=== PATIENT | female | born 1990 | race Caucasian/White ===

== ENCOUNTER 2023-08-06 08:18 | Inpatient (IN) ==
[2023-08-06] MEDS: LACTATED RINGER'S 1,000 ML IV PRN (08:35)
[2023-08-06] MEDS ORDERED: OXYTOCIN 30 UNITS/NSS 30 UNITS/500 ML BAG IV PRN ×2 (08:37→17:14)
[2023-08-06] MEDS ORDERED: LIDOCAINE 1% LOCAL 20 ML VIAL INFIL PRN (08:37)
[2023-08-06] MEDS ORDERED: BUTORPHANOL TARTRATE 2 MG/ML VIAL IV PRN (09:00)
[2023-08-06 09:12] LABS: Hematocrit (blood only) 34.9 % (37.0-47.0); Hemoglobin 11.4 g/dl (12.0-16.0); Mean Corpuscular Hemoglobin 27.9 pg (25.0-34.0); Mean Corpuscular Hgb Conc 32.7 g/dL (32.0-36.0); Mean Corpuscular Volume 85.5 fL (80.0-100.0); Mean Platelet Volume 9.7 fL (9.4-12.4); Platelet Count 229 K/uL (130-400); RDW Coefficient of Variation 13.8 % (11.5-14.5); RDW Standard Deviation 42.2 fL (36.4-46.3); Red Blood Count 4.08 M/uL (4.20-5.40); White Blood Count 7.81 K/ul (4.8-10.8)
[2023-08-06] MEDS: OXYTOCIN 30 UNITS/NSS 30 UNITS/500 ML BAG IV PRN (09:12)
--- NOTE | 2023-08-06 09:20 | History & Physical Report ---
Date of Service August 06, 2023 Assessment & Plan (1) Encounter for supervision of normal in multigravida: Plan: 32-year-old multiparous female presents for induction because of suspected macrosomic at 39-0/7 weeks. A cervical dilator was placed successfully and Pitocin induction will follow per unit protocol. Epidural when requested. Anticipate vaginal . Admission and Anticipated Discharge Date Admission Date: August 06, 2023 History of Present Illness Primary Care Provider: NO PCP Patient is a 32-year-old 4 para 3-0-0-3 female EDC of 08/13/2023 who presents for induction of labor at 39-0/7 weeks because of suspected macrosomic . Last growth scan at 36 weeks showed estimated weight of 95th percentile. Her largest baby so far was 8 pounds 12 ounces. She delivered him without shoulder dystocia or hemorrhage. GBS is negative. otherwise has been uncomplicated. Allergies Allergy/AdvReac Type Severity Reaction Status Date / Time No Known Allergies Allergy Verified 08/05/23 13:46 Home Medications Medication Instructions Recorded Confirmed Type vits no.124-ferrous fum 1 tab PO DAILY 08/06/23 08/06/23 History 27 mg iron-folic acid 800 mcg tablet ( Vitamin) Patient History Medical History (Updated 01/03/23 @ 14:25 by Maggy Kelly) Human papilloma virus Surgical History (Updated 01/03/23 @ 14:25 by Maggy Kelly) Status post surgery cryosurgery ~2014 Family History (Updated 01/03/23 @ 14:12 by Maggy Kelly) Sister Autism Denies family history of Ovarian cancer Breast cancer Colorectal cancer Social History (Updated 01/03/23 @ 14:14 by Maggy Kelly) Smoking Status: Never smoker Do You Dip or Chew Tobacco: No; marital status: Single marital status details: david Cardona (29) [phone] Current Living Situation: Family Current Living Situation Comment: lives with 3 children, cats-mom changing litter current occupational status: employed current occupation: [employer] Review of Systems All systems reviewed & are unremarkable except as noted in HPI & below Physical Exam Constitutional: WD/WN, vitals as above Psychiatric: A+Ox3, euthymic affect Genitourinary: OB Exam Abdomen: + vertex, + estimated weight (8-9 pounds) and + irregular contractions Manual OB Exam: + cervical dilation 1 cm, + cervical effacement 50% and + station -2 OB Exam Monitor Tracing: + external FHT monitor used, + external uterine monitor used, + category I and + normal FHT variability After obtaining verbal consent, a speculum was placed vaginally and the cervix was visualized. A Dudley catheter was inserted through the cervical canal with ease. The balloon was then filled with 40 cc of sterile water. The catheter was aced on traction and attached to her left thigh. Patient tolerated the procedure well. Results & Data Vital Signs (Past 12 Hours) Vital Signs Temp Pulse Resp BP 08/06/23 08:45 97.9 F 18 08/06/23 08:29 75 122/82 Code Status & VTE Plan VTE Prophylaxis Plan VTE Prophylaxis will be ordered: No Coding Level of Care Code None Diagnoses Encounter for supervision of normal in multigravida Z34.80
[2023-08-06] MEDS ORDERED: fentaNYL citrate PF 100 MCG/2 ML VIAL EPI PRN (11:49)
[2023-08-06] MEDS ORDERED: SODIUM CHLORIDE 0.9% PF INJ 10 ML VIAL EPI PRN (11:49)
[2023-08-06] MEDS ORDERED: fentANYL 2 MCG/ML BUPIVacaine 0.125%-NSS 100ML BAG EPI PRN (11:49)
[2023-08-06] MEDS ORDERED: NALOXONE HCL 1 MG in SODIUM CHLORIDE 0.9% 1,000 ML IV PRN (11:49)
[2023-08-06] MEDS ORDERED: NALBUPHINE HCL 5 MG in SYRINGE 0 ML IV PRN (11:49)
[2023-08-06] MEDS ORDERED: ROPIVACAINE 0.5% PF 5 MG/ML 20 ML VIAL EPI PRN (11:49)
[2023-08-06] MEDS ORDERED: diphenhydrAMINE 50 MG/ML VIAL IV PRN (11:49)
[2023-08-06] MEDS ORDERED: ePHEDrine sulfate 50 MG/ML AMP IV PRN (11:49)
[2023-08-06] MEDS ORDERED: NALOXONE HCL 0.4 MG/1 ML VIAL/CARP IV PRN (11:49)
[2023-08-06] MEDS ORDERED: BUPIVACAINE 0.25% PF 30 ML VIAL EPI PRN (11:49)
[2023-08-06] MEDS ORDERED: LIDOCAINE 2% MPF LOCAL 5 ML VIAL EPI PRN (11:49)
--- NOTE | 2023-08-06 11:52 | Anesthesiology Consultation ---
Date of Service August 06, 2023 Assessment & Plan Chart Review Chart Review: Patient NOT seen in Pre Admission Testing and Acceptable Risk for Labor Epidural Consults Requested none ASA ASA2 Proposed Anesthesia Anesthesia Type: Labor Epidural Risk / Benefits Reviewed With: PT / POA / Parent / Guardian, Accepts Plan and Informed Consent Obtained History Height/Weight Height: 5 ft 5 in Weight: 92.533 kg Allergies Allergy/AdvReac Type Severity Reaction Status Date / Time No Known Allergies Allergy Verified 08/05/23 13:46 Medications Home Medications Medication Instructions Recorded Confirmed Last Taken vits no.124-ferrous fum 1 tab PO DAILY 08/06/23 08/06/23 Unknown 27 mg iron-folic acid 800 mcg tablet ( Vitamin) Active Medications Generic Name Dose Route Start Last Admin Trade Name Freq PRN Reason Stop Dose Admin Oxytocin 30 units in 500 mls @ 12 mls/hr 08/06/23 08:37 08/06/23 11:45 Pitocin 30 Units/Nss IV 08/08/23 08:36 0.72 units/hr .Q24H PRN 12 mls/hr Labor Induction/Augmentation Titration Protocol 0.72 UNITS/HR Lactated Ringer's 1,000 mls @ 125 mls/hr 08/06/23 08:37 08/06/23 11:45 Lr IV 08/08/23 08:36 125 mls/hr .Q8H PRN Administration L&D Protocol Protocol NPO Date Last Intake of Fluids: 08/06/23 Time Last Intake of Fluids: 11:00 Date Last Intake of Solids: 08/06/23 Time Last Intake of Solids: 09:00 Past Medical History Medical History Human papilloma virus Past Family History Family History Sister Autism Grandfather (Maternal) Lung cancer Denies family history of Ovarian cancer Breast cancer Colorectal cancer Past Surgical History Surgical History Status post surgery cryosurgery ~2014 Past Anesthesia History No Hx of Anesthesia Complications and No Family Hx of Anesthesia Complications Social History Smoking Status: Never smoker Do You Dip or Chew Tobacco: No Hx Alcohol Use: No Hx Substance Use: No Review of Systems ROS Unobtainable: All systems reviewed & are unremarkable except as noted in HPI & below Physical Exam Vital Signs Last Vital Signs Temp 36.6 C 08/06/23 09:15 Pulse 75 08/06/23 10:47 Resp 18 08/06/23 09:15 BP 107/65 08/06/23 10:47 ENMT Mouth: no TMJ abnormality Thyromental Distance: > or= 3.5 Finger Breadths Mallampati Class: II Neck normal visual inspection and trachea midline; neck extension not limited Respiratory normal respiratory effort Auscultation: lungs clear to auscultation bilaterally Cardiovascular Rate/Rhythm: regular rate and regular rhythm Heart Sounds: no murmur Musculoskeletal Spine: normal cervical ROM Extremities: full ROM of extremities Neurologic moves all extremities Psychiatric Orientation: alert and oriented x 3 Testing Laboratory Results 08/06/23 08:53
[2023-08-06] MEDS: fentANYL 2 MCG/ML BUPIVacaine 0.125%-NSS 100ML BAG ONE (12:16)
[2023-08-06] MEDS: LIDOCAINE 2%/EPINEPHRINE 1:200,000 20 ML PF EPI STA (12:17)
[2023-08-06] MEDS: BUPIVACAINE 0.25% PF 30 ML VIAL EPI STA (12:17)
[2023-08-06] MEDS: SODIUM CHLORIDE 0.9% PF INJ 10 ML VIAL EPI STA (12:17)
[2023-08-06] MEDS: ePHEDrine sulfate 50 MG/ML AMP ONE (14:33)
[2023-08-06] MEDS: BUPIVACAINE 0.25% PF 30 ML VIAL ONE (14:33)
[2023-08-06] MEDS: SODIUM CHLORIDE 0.9% PF INJ 10 ML VIAL ONE (14:33)
[2023-08-06] MEDS: LIDOCAINE 2%/EPINEPHRINE 1:200,000 20 ML PF ONE (14:33)
[2023-08-06] MEDS: fentaNYL citrate PF 100 MCG/2 ML VIAL ONE (14:33)
[2023-08-06] MEDS: fentaNYL citrate PF 100 MCG/2 ML VIAL EPI STA (14:34)
--- NOTE | 2023-08-06 16:24 | Delivery Summary ---
Vaginal Delivery Summary Date of Service August 06, 2023 Vaginal Delivery Summary and 1st Degree LAC (superficial -no repair needed) Patient is a 32-year-old 4 para 3-0-0-3 white female who presents at 39- 0/7 weeks for induction for suspected macrosomic infant. She received a cervical balloon and Pitocin induction. After the cervical balloon delivered, she was becoming more painful and requested epidural analgesia. Membranes were ruptured for small amount of clear fluid. She progressed rapidly at that point to full dilation with the urge to push. She pushed effectively through 1 contraction for delivery of a viable male . After the head was delivered there was a mild shoulder dystocia present which was relieved with hyperflexion of the hips. The rest of the infant then delivered with ease and was placed on the mother's abdomen for further attention and drying. He was vigorous crying and moving all 4 limbs. After cord blood was obtained, the placenta was expressed intact with a three-vessel cord. bleeding was controlled with dilute Pitocin and fundal massage. A superficial perineal abrasion was noted. It was not bleeding and therefore not repaired. QBL was 655 cc. Mother and were doing well after delivery. [facility] [place] Vaginal Delivery Charge Delivery Type Details: and 1st Degree LAC (superficial -no repair needed)
[2023-08-06] MEDS ORDERED: oxyCODONE/ACETAMINOPHEN 5mg/325mg TAB PO PRN (17:14)
[2023-08-06] MEDS ORDERED: bisacodyL 10 MG SUPP PR PRN (17:14)
[2023-08-06] MEDS ORDERED: BENZOCAINE 20% SPRY 85 APPLN/85 GM CAN EXT PRN (17:14)
[2023-08-06] MEDS ORDERED: HYDROCORTISONE ACETATE 25 MG SUPP PR PRN (17:14)
--- NOTE | 2023-08-06 18:48 | Anesthesia Procedure Note ---
Date of Service August 06, 2023 Anesthesia Post Epidural Note Vital Signs Vital Signs: Temp Pulse Resp BP Pulse Ox 36.8 C 114 H 18 111/68 100 08/06/23 18:15 08/06/23 18:35 08/06/23 18:15 08/06/23 18:33 08/06/23 17:22 Notes Mental Status: alert / awake / arousable and participated in evaluation Nausea / Vomiting: adequately controlled Pain: adequately controlled Airway Patency, RR, SpO2: stable & adequate BP & HR: stable & adequate Hydration State: stable & adequate Neuraxial Anesthesia: was administered and sensory block is resolving Anesthetic Complications: no major complications apparent Epidural: Removed without complications and With tip intact
[2023-08-06] MEDS: IBUPROFEN 600 MG TAB PO PRN (19:32)
[2023-08-07] MEDS: DOCUSATE SODIUM 100 MG CAP PO SCH (03:23)
[2023-08-07] MEDS: ACETAMINOPHEN 325 MG TAB PO PRN (06:06)
[2023-08-07 06:18] LABS: Hemoglobin 9.4 g/dl (12.0-16.0); Mean Corpuscular Hemoglobin 27.7 pg (25.0-34.0); Mean Corpuscular Hgb Conc 32.4 g/dL (32.0-36.0); Mean Corpuscular Volume 85.5 fL (80.0-100.0); Mean Platelet Volume 9.2 fL (9.4-12.4); Platelet Count 174 K/uL (130-400); RDW Coefficient of Variation 13.8 % (11.5-14.5); Red Blood Count 3.39 M/uL (4.20-5.40); White Blood Count 10.46 K/ul (4.8-10.8)
--- NOTE | 2023-08-07 06:28 | Obstetrical Progress Note ---
Date of Service <Jv Gan MD - Last Filed: 08/07/23 08:29> August 07, 2023 Assessment & Plan <Jv Gan MD - Last Filed: 08/07/23 08:29> (1) Normal vaginal delivery of fourth : Plan 32 yo , status post induction of labor and vaginal delivery w/ one laceration on 08/06/23 - Pt doing well clinically. Feels well today. Eating well, voiding well, ambulating well. Pain well controlled with PRN pain meds. - Routine care -- OOB, ambulation, diet progression as tolerated Vital Signs reviewed and WNL. (Tmax at 36.7) Hemoglobin Reviewed. 11.4 (08/06/23) 9.4 (today). Blood Type: O+, GBS-, Rubella Non-Immune. Encourage ambulation, monitor and control pain with Motrin PRN, resume regular diet, monitor lochia. Breast feeding encouraged. After discharge will have 6 week follow-up with Dr. Cummings. Pt counselled on discharge instructions, in the event that they go home today. <Sonia Cummings MD, FACOG - Last Filed: 08/07/23 08:41> (1) Normal vaginal delivery of fourth : Subjective <Jv Gan MD - Last Filed: 08/07/23 08:29> Ambulation: ambulating normally Voiding: no voiding problems Passing Gas:: No Diet Tolerance:: regular diet Lochia:: Moderate Feeding Type:: bottle feeding Current Pain Level(1-10): 7 (abdominal cramping when pain medicine wears off) Constitutional: + fatigue; no fever or no chills Eyes: no diplopia, no seeing flashes or no worsening vision Ear, Nose, Mouth, Throat: no dizziness, no nasal congestion, no nasal discharge, no post nasal drip or no sore throat Respiratory: no cough, no chest congestion or no dyspnea Cardiovascular: no chest pain or no palpitations Gastrointestinal: no abdominal pain, no nausea, no vomiting, no constipation (but still no BM) or no diarrhea/loose stools Genitourinary (female): no dysuria or no difficulty urinating Musculoskeletal: + myalgia (in left lateral thigh) Neurologic: no tingling, no numbness, no dizziness or no headache(s) Physical Exam <Jv Gan MD - Last Filed: 08/07/23 08:29> Constitutional WD/WN, vitals as above Respiratory normal respiratory effort, lungs clear to auscultation Cardiovascular RRR, no murmur, no edema Gastrointestinal (Abdomen) Inspection/Auscultation: abdomen normal to inspection and + significant pannus Percussion/Palpation: + abdomen tender (mildly tender) Musculoskeletal Extremities: no lower leg abnormality (left thigh w/out erythema, edema, warmth or other concerning signs) Patient's pain of left lateral thigh not discernible w/ palpation. Likely due to prolonged and extended hip extension during delivery. Seems to be resolving Psychiatric A+Ox3, euthymic affect Results & Data <Jv Gan MD - Last Filed: 08/07/23 08:29> Vital Signs (Past 12 Hours) Vital Signs Temp Pulse Pulse Resp BP BP Pulse Ox 08/07/23 05:00 36.4 C L 98 H 16 112/72 98 08/07/23 00:05 36.6 C 94 H 16 111/72 97 08/06/23 20:26 36.4 C L 104 H 16 112/75 97 08/06/23 18:35 114 H 08/06/23 18:33 106 H 111/68 O2 Del Method 08/07/23 05:00 Room Air 08/07/23 00:05 Room Air 08/06/23 20:26 Room Air 08/06/23 18:35 08/06/23 18:33 Supervising Physician <Sonia Cummings MD, FACOG - Last Filed: 08/07/23 08:41> Co-Signing Physician Notes Resident Physician Supervision Note: I interviewed and examined the patient. Discussed with Dr. Gan and agree with findings and plan as documented in the note. Any exceptions or clarifications are listed here: [None] Documented By: Sonia Cummings MD, FACOG
[2023-08-07] MEDS: PRENATAL VITAMIN 1 TAB PO SCH (08:01)
[2023-08-07] MEDS: MEASLES, MUMPS & RUBELLA VIRUS VACCINE (MMR) VIAL SQ ONE (12:23)
[2023-08-07] MEDS: DIPHTHER/TETAN/PERTUS Vaccine (Tdap, Adol/Adult) 0.5mL IM ONE (12:23)
[2023-08-07] MEDS ORDERED: bisacodyL 5 MG TABEC PO SCH (20:00)
== END 2023-08-07 17:45 | disposition home or self-care (01) | DRG 807 ==
LOC: 4S1 08:18 → 4E2 18:49

== ENCOUNTER 2024-09-28 08:08 | Inpatient (IN) ==
[2024-09-28] MEDS ORDERED: CALCIUM CARBONATE 500 MG CHEWABLE TAB PO PRN (08:27)
[2024-09-28] MEDS ORDERED: LIDOCAINE 1% LOCAL 20 ML VIAL INFIL PRN (08:27)
--- NOTE | 2024-09-28 09:15 | History & Physical Report ---
Date of Service September 28, 2024 Assessment & Plan (1) Hypothyroid in , antepartum: Plan: Lilly is a 33-year-old G5, P4 currently at 39 weeks 3 days gestational age presents for elective induction of labor 1. Fetus: Category 1 tracing 2. Labor: Will start with oxytocin per regular protocol. Will plan for rupture of membranes when appropriate 3. GBS negative 4. Vitals within normal limits (2) Encounter for supervision of normal in multigravida: (3) Encounter for induction of labor: Admission and Anticipated Discharge Date Admission Date: September 28, 2024 History of Present Illness Primary Care Provider: NO PCP Lilly is a 33-year-old G5, P4 currently at 39 weeks 3 days gestational age presents for induction of labor. complicated by hypothyroidism adequately treated. OB Labs: Blood Type O Positive 02/27/24 Antibody Screen NEGATIVE 02/27/24 Hgb 11.2 g/dl (12.0-16.0) L 07/15/24 Hct 35.0 % (37.0-47.0) L 07/15/24 MCV 82.5 fL (80.0-100.0) 02/27/24 Plt Count 281 K/uL (130-400) 02/27/24 Rubella IgG Antibody Non Immune (Immune) L 02/27/24 Treponema pallidum Ab Negative (Negative) 07/15/24 Hep Bs Antigen Negative (Negative) 02/27/24 Hepatitis C Antibody Negative (Negative) 02/27/24 HIV 1&2 Ab/P24 Ag 4thGn Negative (Negative) 02/27/24 Glucose 1 Hr 50 gm 100 mg/dl (70-130) 07/15/24 Maternal Serum AFP 36.2 ng/mL 04/22/24 OB Optional Labs: Chlamydia trachomatis RNA Not Detected (NotDetected) 02/27/24 Neisseria gonorrhoeae RNA Not Detected (NotDetected) 02/27/24 Thyroid Stimulating Hormone (TSH) 2.260 uIU/mL (0.30-4.50) 08/06/24 Alpha Fetoprotein Triple Screen SEE NOTE 04/22/24 Labs Reviewed: Initial OB Labs 12/11/22 Blood Type & RH O positive Antibody Screen negative HCT/HGB 40.2/13.5 Platelets 223 Hep C IgG 13yrs+ Old non-reactive Pap Test WNL Chlamydia not detected Gonorrhea not detected Rubella non- immune RPR non-reactive Urine Culture/Screen 50,000-100,000 mixed bharath HBsAg non- reactive HIV non-reactive MCV 87.2 Ultrasound Horizon 14-negative--mln cfdna-low risk--mln Allergies Allergy/AdvReac Type Severity Reaction Status Date / Time No Known Allergies Allergy Verified 09/28/24 08:39 Home Medications Medication Instructions Recorded Confirmed Type vits no.124-ferrous fum 1 tab PO DAILY 08/06/23 09/28/24 History 27 mg iron-folic acid 800 mcg tablet ( Vitamin) ferrous sulfate [Iron (ferrous 1 tab PO DAILY 07/15/24 09/28/24 History sulfate)] Patient History Medical History Human papilloma virus Surgical History Status post surgery Family History Sister Autism Grandfather (Maternal) Lung cancer Denies family history of Ovarian cancer Breast cancer Colorectal cancer Social History Smoking Status: Never smoker Do You Dip or Chew Tobacco: No; Hx Alcohol Use: No Hx Substance Use: No Preferred Language: [place] Sales Representative Graphic Art Required: No Beliefs That Will Affect Care: None marital status: Single marital status details: david Knott (34) [phone] Current Living Situation: Family Current Living Situation Comment: lives with mother, 4 children, cats-mom changing litter current occupational status: employed current occupation: [employer]: Contacts Physical Exam Genitourinary: OB Exam Abdomen: + vertex Manual OB Exam: + cervical dilation 2 cm, + cervical effacement 50% and + station -2 OB Exam Monitor Tracing: + external FHT monitor used, + external uterine monitor used, + category I and + normal FHT variability Results & Data Vital Signs (Past 12 Hours) Vital Signs Temp Pulse Resp BP 09/28/24 08:20 36.6 C 75 16 109/68 Coding Level of Care Code None Diagnoses Hypothyroid in , antepartum O99.280; E03.9 Encounter for supervision of normal in multigravida Z34.80 Encounter for induction of labor Z34.90
[2024-09-28 09:56] LABS: Hematocrit (blood only) 31.1 % (37.0-47.0); Hemoglobin 10.4 g/dl (12.0-16.0); Mean Corpuscular Hemoglobin 28.1 pg (25.0-34.0); Mean Corpuscular Hgb Conc 33.4 g/dL (32.0-36.0); Mean Corpuscular Volume 84.1 fL (80.0-100.0); Mean Platelet Volume 9.2 fL (9.4-12.4); Platelet Count 203 K/uL (130-400); RDW Coefficient of Variation 14.4 % (11.5-14.5); RDW Standard Deviation 43.8 fL (36.4-46.3); White Blood Count 8.99 K/ul (4.8-10.8)
[2024-09-28] MEDS: LACTATED RINGER'S 1,000 ML IV PRN (10:13)
[2024-09-28] MEDS: OXYTOCIN 30 UNITS/NSS 30 UNITS/500 ML BAG IV PRN ×2 (10:15→18:40)
[2024-09-28] MEDS: BUPIVACAINE 0.25% PF 30 ML VIAL ONE (11:10)
[2024-09-28] MEDS: SODIUM CHLORIDE 0.9% PF INJ 10 ML VIAL ONE (11:10)
[2024-09-28] MEDS: LIDOCAINE 2%/EPINEPHRINE 1:200,000 20 ML PF ONE (11:11)
[2024-09-28] MEDS: fentANYL 2 MCG/ML BUPIVacaine 0.125%-NSS 100ML BAG ONE (11:14)
[2024-09-28] MEDS ORDERED: fentANYL 2 MCG/ML BUPIVacaine 0.125%-NSS 100ML BAG EPI PRN (11:19)
[2024-09-28] MEDS ORDERED: LIDOCAINE 2% MPF LOCAL 5 ML VIAL EPI PRN (11:19)
[2024-09-28] MEDS ORDERED: ePHEDrine sulfate 50 MG/ML AMP IV PRN (11:19)
[2024-09-28] MEDS ORDERED: SODIUM CHLORIDE 0.9% PF INJ 10 ML VIAL EPI PRN (11:19)
[2024-09-28] MEDS ORDERED: ROPIVACAINE 0.5% PF 5 MG/ML 20 ML VIAL EPI PRN (11:19)
[2024-09-28] MEDS ORDERED: fentaNYL citrate PF 100 MCG/2 ML VIAL EPI PRN (11:19)
[2024-09-28] MEDS ORDERED: diphenhydrAMINE 50 MG/ML VIAL IV PRN (11:19)
[2024-09-28] MEDS ORDERED: BUPIVACAINE 0.25% PF 30 ML VIAL EPI PRN (11:19)
[2024-09-28] MEDS ORDERED: NALOXONE HCL 1 MG in SODIUM CHLORIDE 0.9% 1,000 ML IV PRN (11:19)
[2024-09-28] MEDS ORDERED: NALBUPHINE HCL INJ 10 MG/ML AMP IV PRN (11:19)
[2024-09-28] MEDS ORDERED: PROMETHAZINE 6.25 MG/50.25 ML BAG IV PRN (11:19)
[2024-09-28] MEDS ORDERED: ONDANSETRON INJ 2 MG/ML 2 ML VIAL IV PRN (11:19)
[2024-09-28] MEDS ORDERED: NALOXONE HCL 0.4 MG/1 ML VIAL/CARP IV PRN (11:19)
--- NOTE | 2024-09-28 11:19 | Anesthesiology Consultation ---
Date of Service September 28, 2024 Assessment & Plan Chart Review Chart Review: Patient NOT seen in Pre Admission Testing and Acceptable Risk for Labor Epidural Consults Requested none ASA ASA2 Proposed Anesthesia Anesthesia Type: Labor Epidural Risk / Benefits Reviewed With: PT / POA / Parent / Guardian, Accepts Plan and Informed Consent Obtained History Height/Weight Height: 5 ft 4 in Weight: 86.183 kg Allergies Allergy/AdvReac Type Severity Reaction Status Date / Time No Known Allergies Allergy Verified 09/28/24 08:39 Medications Home Medications Medication Instructions Recorded Confirmed Last Taken vits no.124-ferrous fum 1 tab PO DAILY 08/06/23 09/28/24 09/21/24 07:00 27 mg iron-folic acid 800 mcg tablet ( Vitamin) ferrous sulfate [Iron (ferrous 1 tab PO DAILY 07/15/24 09/28/24 09/21/24 07:00 sulfate)] Active Medications Generic Name Dose Route Start Last Admin Trade Name Freq PRN Reason Stop Dose Admin Lactated Ringer's 1,000 mls @ 125 mls/hr 09/28/24 08:27 09/28/24 10:30 Lr IV 09/29/24 08:26 999 mls/hr .Q8H PRN Infusion L&D Protocol Protocol Oxytocin 30 units in 500 mls @ 4 mls/hr 09/28/24 08:27 09/28/24 11:15 Pitocin 30 Units/Nss IV 09/30/24 08:26 0.36 units/hr .Q24H PRN 6 mls/hr Labor Induction/Augmentation Titration Protocol 0.24 UNITS/HR Past Medical History Medical History Human papilloma virus Exercise / Class Metabolic Activity II 4-5 Yardwork/Stairs/Walk up hill Past Family History Family History Sister Autism Grandfather (Maternal) Lung cancer Denies family history of Ovarian cancer Breast cancer Colorectal cancer Past Surgical History Surgical History Status post surgery Past Anesthesia History No Hx of Anesthesia Complications and No Family Hx of Anesthesia Complications History of PONV No Hx of PONV and No Hx of Motion Sickness Social History Smoking Status: Never smoker Do You Dip or Chew Tobacco: No Hx Alcohol Use: No Hx Substance Use: No substance use type: does not use Physical Exam Vital Signs Last Vital Signs Temp 36.6 C 09/28/24 09:15 Pulse 92 H 09/28/24 11:14 Resp 16 09/28/24 09:15 BP 102/59 L 09/28/24 11:13 Pulse Ox 100 09/28/24 11:14 ENMT Mouth: no dentition abnormality Thyromental Distance: > or= 3.5 Finger Breadths Mallampati Class: II Neck normal visual inspection Respiratory normal respiratory effort Auscultation: lungs clear to auscultation bilaterally Cardiovascular Rate/Rhythm: regular rate and regular rhythm Psychiatric Orientation: alert Testing Laboratory Results 09/28/24 09:40
[2024-09-28] MEDS: fentaNYL citrate PF 100 MCG/2 ML VIAL ONE (12:30)
[2024-09-28] MEDS: BUPIVACAINE 0.25% PF 30 ML VIAL EPI STA (12:30)
[2024-09-28] MEDS: fentaNYL citrate PF 100 MCG/2 ML VIAL EPI STA (12:31)
[2024-09-28] MEDS: SODIUM CHLORIDE 0.9% PF INJ 10 ML VIAL EPI STA (12:32)
[2024-09-28] MEDS: LIDOCAINE 2%/EPINEPHRINE 1:200,000 20 ML PF EPI STA (12:32)
[2024-09-28] MEDS ORDERED: NURSING L&D Epidural Breakthrough Pain Update ONE (17:54)
[2024-09-28] MEDS ORDERED: ACETAMINOPHEN 325 MG TAB PO PRN (18:16)
[2024-09-28] MEDS ORDERED: HYDROCORTISONE ACETATE 25 MG SUPP PR PRN (18:16)
[2024-09-28] MEDS ORDERED: bisacodyL 10 MG SUPP PR PRN (18:16)
[2024-09-28] MEDS ORDERED: BENZOCAINE 20% SPRY 85 APPLN/85 GM CAN EXT PRN (18:16)
[2024-09-28] MEDS ORDERED: OXYTOCIN 30 UNITS/NSS 30 UNITS/500 ML BAG IV PRN (18:16)
[2024-09-28] MEDS: ePHEDrine sulfate 50 MG/ML AMP ONE (18:18)
--- NOTE | 2024-09-28 18:20 | Delivery Summary ---
Vaginal Delivery Summary Date of Service September 28, 2024 Vaginal Delivery Summary Patient progressed to 10 cm dilated 100% effaced +2 station and pushed over intact perineum with an epidural anesthesia and delivered a viable with weight and Apgars pending. Head of the delivered without difficulty quickly followed by shoulders and body. was noted to be vigorous soon after delivery and a 1 minute delayed cord clamping was initiated. Cord was then double clamped and cut remained on maternal abdomen. Cord blood obtained and attention turned to deliver the placenta which delivered intact with three-vessel cord with gentle cord traction. Inspection of perineum vagina and cervix there is no to be no lacerations. Sponge and instrument counts correct with completion of the case. Both mother and stable in the immediate postdelivery timeframe. No complications noted and blood loss per QBL [facility] Vaginal Delivery Charge Delivery Type Details: [facility] [place]
[2024-09-28 18:34] VITALS: RESP 18
[2024-09-28] MEDS: DIPHTHER/TETAN/PERTUS Vaccine (Tdap, Adol/Adult) 0.5mL IM ONE (18:35)
--- NOTE | 2024-09-28 19:49 | Anesthesia Procedure Note ---
Date of Service September 28, 2024 Anesthesia Post Epidural Note Vital Signs Vital Signs: Temp Pulse Resp BP Pulse Ox 37.0 C 91 H 18 102/61 88 L 09/28/24 18:30 09/28/24 19:45 09/28/24 18:30 09/28/24 19:45 09/28/24 18:58 Notes Mental Status: alert / awake / arousable Nausea / Vomiting: adequately controlled Pain: adequately controlled Airway Patency, RR, SpO2: stable & adequate BP & HR: stable & adequate Hydration State: stable & adequate Neuraxial Anesthesia: was administered and sensory block is resolving Anesthetic Complications: no major complications apparent and Pt Satisfied with anesthetic care Epidural: Removed without complications and With tip intact
[2024-09-28] MEDS: IBUPROFEN 600 MG TAB PO PRN (20:29)
[2024-09-28] MEDS: DOCUSATE SODIUM 100 MG CAP PO SCH (20:30)
[2024-09-28] MEDS: ACETAMINOPHEN 500 MG TAB PO PRN (23:41)
[2024-09-29 06:41] LABS: Hematocrit (blood only) 29.4 % (37.0-47.0); Hemoglobin 9.5 g/dl (12.0-16.0)
--- NOTE | 2024-09-29 07:28 | Obstetrical Progress Note ---
Date of Service September 29, 2024 Assessment & Plan (1) Encounter for care and examination after delivery: Day 1 status post vaginal delivery. Patient doing well and stable for discharge at 24 hours if preferred Subjective Ambulation: ambulating normally Voiding: no voiding problems Passing Gas:: Yes Diet Tolerance:: regular diet Lochia:: Moderate Physical Exam Constitutional WD/WN, vitals as above Respiratory normal respiratory effort; no respiratory distress and no labored breathing Cardiovascular Extremities: no calf tenderness Gastrointestinal (Abdomen) Inspection/Auscultation: abdomen normal to inspection; abdomen not distended Percussion/Palpation: abdomen soft; abdomen nontender, no guarding and abdomen not rigid Genitourinary OB Exam Abdomen: + fundal height Fundus: + firm and + relation to umbilicus (Below); not tender or not boggy Results & Data Vital Signs (Past 12 Hours) Vital Signs Temp Pulse Pulse Resp BP BP Pulse Ox 09/29/24 04:00 36.6 C 84 18 118/67 98 09/28/24 23:30 36.7 C 84 18 101/66 96 09/28/24 21:30 36.9 C 112 H 18 101/68 09/28/24 20:15 105 H 09/28/24 20:15 114/73 09/28/24 20:00 100 H 09/28/24 20:00 104/65 09/28/24 19:45 36.8 C 18 09/28/24 19:45 91 H 09/28/24 19:45 102/61 09/28/24 19:30 86 09/28/24 19:30 135/65 O2 Del Method 09/29/24 04:00 Room Air 09/28/24 23:30 Room Air 09/28/24 21:30 Room Air 09/28/24 20:15 09/28/24 20:15 09/28/24 20:00 09/28/24 20:00 09/28/24 19:45 09/28/24 19:45 09/28/24 19:45 09/28/24 19:30 09/28/24 19:30
[2024-09-29] MEDS: FERROUS SULFATE 325 MG TAB PO SCH (08:17)
[2024-09-29] MEDS: PRENATAL VITAMIN 1 TAB PO SCH (08:17)
[2024-09-29 08:40] VITALS: TEMP 97.5; O2SAT 97
[2024-09-29] MEDS: MEASLES, MUMPS & RUBELLA VIRUS VACCINE (MMR) 0.5ML VIAL SQ ONE (09:39)
[2024-09-29 17:23] VITALS: BP 111/71; PULSE 84
[2024-09-29] MEDS ORDERED: bisacodyL 5 MG TABEC PO SCH (20:00)
== END 2024-09-29 19:50 | disposition home or self-care (01) | DRG 807 ==
LOC: 4S1 08:08 → 4E2 21:09
DX: O99.284 Endocrine, nutritional and metabolic diseases complicating childbirth; Z37.0 Single live birth; Z3A.39 39 weeks gestation of pregnancy; E03.9 Hypothyroidism, unspecified